=== PATIENT | male | born 1945 | race Hispanic/Latino ===

== ENCOUNTER 2018-03-17 13:50 | Inpatient (IN) | payer MEDICARE, MEDICAID ==
[~2018-03-17 13:50] MED LIST: Iopamidol 370 76% 100 ML VIAL ONE
[2018-03-17 15:07] LABS: #Basophils 0.1 thou/uL (0.0-0.2); #Eosinphils 0.1 thou/uL (0.0-0.7); #Lymphocytes 1.3 thou/uL (1.20-3.40); #Monocytes 0.5 thou/uL (0.11-0.59); #Neutrophils 5.8 thou/uL (1.40-6.50); %Basophils 0.9 % (0.0-1.0); %Eosinophils 1.4 % (0.0-10.0); %Lymphocytes 16.5 % (21.0-51.0); %Monocytes 6.6 % (0.0-10.0); %Neutrophils 74.5 % (42.0-75.0); Hemoglobin 13.5 g/dL (14.0-18.0); Mean Corpuscular HGB CONC 32.7 g/dL (32.0-36.0); Mean Corpuscular Hemoglobin 29.5 pg (27.0-31.0); Mean Corpuscular Volume 90.1 fL (78.0-98.0); Mean Platelet Volume 7.3 fL (7.4-10.4); Platelet Count 305 thou/uL (130-400); RBC Distribution Width 11.9 % (11.5-14.5); Red Blood Cell (RBC) Count 4.59 mill/uL (4.70-6.10); White Blood Cell (WBC) Count 7.8 thou/uL (4.8-10.8)
--- NOTE | 2018-03-17 15:21 | CT ---
CT HEAD NONCONTRAST: INDICATIONS: Stroke with history of left arm and left leg weakness. FINDINGS: There is multifocal subtle hypoattenuation in the cerebral hemispheres, indicating mild microvascular ischemic disease. No intracranial hemorrhage, mass effect, midline shift, or ventriculomegaly. The imaged paranasal sinuses are clear. No evidence of otomastoid effusion. IMPRESSION: 1. No intracranial hemorrhage or mass effect. 2. Findings most consistent with mild ischemic disease of the cerebral white matter. 3. Superimposed small hypodensity of the pulvinar of the left thalamus indicates lacunar infarction. Telephone call to ER physician, Gene Portillo D.O., provided at 1434 hours on 03/17/2018. CODE CR POS: [facility]
--- NOTE | 2018-03-17 15:27 | CT ---
CTA NECK WITH CONTRAST AND 3D VOLUME RENDERING CTA HEAD WITH CONTRAST AND 3D VOLUME RENDERING: Date: 03/17/18 INDICATION: New onset stroke, weakness of the left extremities. FINDINGS: Incidental note of irregular opacity of the left apex with pleural based density incompletely evaluat ed. Aortic arch is patent with mild vascular calcification present. Great vessels that emanate from the a ortic arch are patent. Each subclavian artery reveals no significant stenosis or occlusion. The bilat eral vertebral arteries are codominant and patent. Basilar artery is patent. No significant stenosis or occlusion of either STOCK BLENDER, MCA, or LUIS. Bilateral common and internal carotid arteries are patent wi th mild peripheral calcification of each terminal carotid artery. IMPRESSION: No high grade stenosis or occlusion of the major arterial system of head and neck. Telephone call to ER physician, Gene Portillo D.O., provided at 1434 hours on 03/17/2018. CODE CR POS: [facility]
[2018-03-17 15:29] LABS: ALT (SGPT) 11 U/L (8-55); AST (SGOT) 13 U/L (5-34); Albumin 3.9 g/dL (3.4-4.8); Alkaline Phosphatase 142 U/L (40-150); Anion Gap 11 mmol/L (10-20); BUN (Urea Nitrogen) 13 mg/dL (8.4-25.7); Bilirubin, Total 0.5 mg/dL (0.2-1.2); Calc. Creatinine Clearance 0 mL/min (70-130); Calcium 9.1 mg/dL (7.8-10.44); Carbon Dioxide 27 mmol/L (23-31); Chloride 103 mmol/L (98-107); Estimated GFR-MDRD 83; Globulin 2.9 g/dL (2.4-3.5); Glucose 199 mg/dL (83-110); Potassium 3.5 mmol/L (3.5-5.1); Protein, Total 6.8 g/dL (5.8-8.1); Sodium 137 mmol/L (136-145)
[2018-03-17] MEDS ORDERED: hydrALAZINE 20 MG/ML VIAL SLOW IVP PRN (16:14)
[2018-03-17] MEDS ORDERED: Dextrose 5% in Water 1,000 ML IV PRN (16:21)
[2018-03-17] MEDS ORDERED: Dextrose 50% Abboject 50 ML SYRINGE SLOW IVP PRN (16:21)
[2018-03-17] MEDS ORDERED: Aspirin 81 mg Enteric Coated Tablet PO SCH (17:00)
[2018-03-17] MEDS ORDERED: Aspirin 325 MG TAB ONE (17:31)
[2018-03-17] MEDS ORDERED: Ondansetron PF 4 MG/2 ML Vial ONE (17:46)
[2018-03-17 21:11] VITALS: BMI 22.8
[2018-03-17] MEDS ORDERED: Morphine 2 MG/ML SYRINGE SLOW IVP SCH (22:15)
[2018-03-17] MEDS: Ondansetron PF 4 MG/2 ML Vial SLOW IVP PRN (22:16)
[2018-03-17] MEDS: Atorvastatin Calcium 40 MG TAB PO SCH (22:16)
[2018-03-17] MEDS: HumaLOG 300 UNITS/3 ML VIAL SC PRN (22:27)
--- NOTE | 2018-03-17 23:08 | HP ---
CHIEF COMPLAINT: Left-sided weakness. HISTORY OF PRESENT ILLNESS: This patient is a 72-year-old male with a history of hypertension, hyperlipidemia, and diabetes, who awoke this morning feeling normally. He then developed some dizziness and then progressively some numbness over the entire left side of his body including his face, arm, and leg. He continued to maintain some movement on that side, but was not able to maintain any balance and continued to fall toward that side. He presented to the outside emergency department. However, their CT scanner was down and the patient was subsequently transferred to our facility. However, his symptoms started around 9 to 9:30 this morning and it was after 5 o'clock before he arrived and he was outside the window for consideration of tPA. In spite of that, the patient's symptoms had substantially improved by the time he arrived here. Currently, he feels like he has relatively good strength, but he is still numb on the left side. He reports his blood pressure typically runs 140/90. REVIEW OF SYSTEMS: The patient has some symptoms related to his BPH, which basically has a little bit of difficulty voiding, but other than that, all other systems were reviewed and all pertinent positives and negatives noted in the HPI. PAST MEDICAL HISTORY: Notable for hypertension, hyperlipidemia, diabetes, BPH. PAST SURGICAL HISTORY: Left shoulder, right leg, back, and a cholecystectomy. SOCIAL HISTORY: The patient is a nonsmoker, nondrinker, nontobacco user. He is . He is full code. His granddaughter or daughter would be his surrogate decision maker. FAMILY HISTORY: He has a sister, who had a CVA. They are unaware of any history with his parents. ALLERGIES: NONE. MEDICATIONS: Atorvastatin 40 mg at bedtime, captopril 12.5 mg daily, Lantus subcu at bedtime, omeprazole 20 mg daily, tamsulosin 0.4 mg daily. PHYSICAL EXAMINATION: VITAL SIGNS: BP 199/106, pulse 71, respirations 15, O2 saturation 97%. GENERAL APPEARANCE: Age-appropriate male. He is awake, alert, in no distress. He is primarily Latvian speaking. HEENT: PERRL. He has no acute lesions. NECK: Supple and symmetric with no lymphadenopathy, JVD, or carotid bruits. HEART: Regular rate and rhythm with no murmurs, gallops, or rubs. LUNGS: Clear to auscultation bilaterally with good chest wall expansion and air exchange. ABDOMEN: Soft, nontender, and nondistended. Positive bowel sounds. No masses. No organomegaly. EXTREMITIES: No cyanosis, clubbing, or edema. NEUROLOGICAL: The patient has some hypoesthesia over the entire left side of his body. He does have fairly good strength, which is pretty symmetric bilaterally, but he has decreased coordination with [id number] on the left compared to the right. Cranial nerves appear to be fully intact otherwise. LABORATORY DATA: White count 7.8, hemoglobin 13.5, platelets 305. Sodium 137, potassium 3.5, chloride 103, CO2 of 27, BUN 13, creatinine 0.9, glucose 199, calcium 9.1, AST 13, ALT 11, alkaline phosphatase 142. Troponin less than 0.01. CT of brain shows no intracranial hemorrhage or mass effect. Some mild ischemic disease of the cerebral white matter, superimposed small hypodensity of the pulvinar of the left thalamus indicating lacunar infarction. CT angiogram of the head and neck shows no high-grade stenosis or occlusion of the major arterial system of the head and neck. IMPRESSION AND PLAN: 1. Acute cerebrovascular accident, appears to be a lacunar thalamic infarction. The patient is admitted to the stroke floor. We will consult Neurology and the stroke team. He is already on aspirin and atorvastatin. We will continue those. We will allow some permissive hypertension with p.r.n. hydralazine for excessive blood pressure only. 2. Diabetes mellitus. Accu-Cheks and sliding scale insulin. 3. Baseline hypertension. We will continue only his usual home regimen. 4. Hyperlipidemia. Continue the atorvastatin. 5. Benign prostatic hypertrophy. Continue his tamsulosin. Job ID: [id number]
[2018-03-18] MEDS ORDERED: Promethazine HCl 25 MG/ML VIAL IM SCH (00:30)
[2018-03-18] MEDS ORDERED: Promethazine HCl 25 MG/ML VIAL IM/IV PRN (00:34)
[2018-03-18] MEDS ORDERED: Morphine 2 MG/ML SYRINGE SLOW IVP PRN (00:35)
[2018-03-18 00:37] LABS: Bilirubin Negative (Negative); Blood, Urine Large (Negative); Clarity CLOUDY (Clear); Glucose, Urine (Dipstick) 100 mg/dL (Negative); Leukocyte Small (Negative); Nitrite Negative (Negative); Protein, Urine (Dipstick) Negative (Neg-Trace); Specific Gravity, Urine 1.038 (1.002-1.036); Urobilinogen 0.2 mg/dL (0.2-1.0)
[2018-03-18 00:39] LABS: Bacteria/HPF Rare-Few HPF (None Seen); Hyaline Casts/LPF 0-3 HYALINE CAST LPF (0-3 Hyaline); RBC/HPF GREATER THAN 50-TNTC HPF (0-3); Squamous Epithelial 0-3 HPF (0-3)
[2018-03-18] MEDS ORDERED: Acetaminophen 1,000 MG in Premix Bag 1 BAG IVPB SCH (01:00)
[2018-03-18] MEDS: Piperacillin/Tazobactam 4.5 GM in Sodium Chloride 0.9% 100 ML IVPB SCH ×3 (01:15→17:23)
[2018-03-18 05:57] LABS: Cardiac Risk 2.8 (Less than 4.5)
[2018-03-18] MEDS ORDERED: Prevnar 13-Val Conj/PF 0.5 ML SYRINGE IM ONE (07:00)
[2018-03-18] MEDS: Tamsulosin HCl 0.4 MG CAP PO SCH (08:48)
[2018-03-18] MEDS ORDERED: Aspirin 81 mg Enteric Coated Tablet PO SCH (09:00)
--- NOTE | 2018-03-18 09:08 | CT ---
PRELIMINARY REPORT/[facility]/EMERGENCY AFTER HOURS PROCEDURE: EXAM: CT Abdomen and Pelvis With Contrast EXAM DATE/TIME: 03/18/2018 2:40 AM CLINICAL HISTORY: 72 years old, male; Pain and signs and symptoms; Abdominal tenderness and vomiting; Abdominal pain; G eneralized; Patient HX: 213, m 72, CVA PT continous vomiting. From head study yesterday in er-. M72 p resents to ed as a transfer from [place] for CVA R/O, reports that PT arrived at their facility com plaining of left arm and leg weakness, and decreased sensation to the left arm and face. Last seen no rmal 09: 15. PT transferred because CT down in [place]. Denies speech changes, vision changes. HX d iabetes. TECHNIQUE: Axial computed tomography images of the abdomen and pelvis with intravenous contrast. Coronal reformatted images were created and reviewed. COMPARISON: No relevant prior studies available. FINDINGS: Lower thorax: No acute findings. ABDOMEN: Liver: Normal. No mass. Gallbladder and bile ducts: Prior cholecystectomy. No biliary ductal dilatation. Pancreas: Normal. No ductal dilation. Spleen: Normal. No splenomegaly. Adrenals: Normal. No mass. Kidneys and ureters: Diffuse inflammation of horseshoe kidney without hydroureteronephrosis, delayed nephrogram/contrast excretion, or urolithiasis, consistent with pyelonephritis. Stomach and bowel: No bowel wall thickening or intestinal obstruction. Appendix: Appendix not confidently visualized. No evidence of appendicitis. PELVIS: Bladder: Unremarkable as visualized. Reproductive: Massive heterogeneous prostatomegaly. Small right-sided scrotal hydrocele. ABDOMEN and PELVIS: Intraperitoneal space: No pneumoperitoneum or abscess. Bones/joints: No acute fracture. No dislocation. Soft tissues: Small umbilical hernia containing fat only. Vasculature: Normal. No abdominal aortic aneurysm. Lymph nodes: Enlarged 1.4 cm short axis posterior right iliac chain lymph node, indeterminate. IMPRESSION: 1. Diffuse pyelonephritis of horseshoe kidney. 2. Massive heterogeneous prostatomegaly. 3. Enlarged 1.4 cm short axis posterior right iliac chain lymph node, indeterminate. 4. Small right-sided scrotal hydrocele. Thank you for allowing us to participate in the care of your patient. Dictated and Authenticated by: Donavon Land MD 03/18/2018 3:59 AM Central Time ([place] & [place]) FINAL REPORT EMERGENCY AFTER HOURS CT ABDOMEN AND PELVIS: Date: 03/18/18 IMPRESSION: I agree with the preliminary interpretation given by Kendrick. Perinephric fat stranding, greater involvi ng the right aspect of the horseshoe kidney, suspicious for pyelonephritis. No renal parenchymal atte nuation difference is evident. Correlate clinically. Chronic findings as in the preliminary report. POS: [facility]
--- NOTE | 2018-03-18 09:41 | PDOC.PN ---
- Subjective Encounter Start Date: 03/18/18 Encounter Start Time: 09:38 Symptoms may be slightly worse regarding his left sided coordination. Still has some numbness. Had some urinary obstruction last night. Had cath and some modest blood noted. 650 cc of urine obtained. Patient also had a temp of 103. CT abdomen and pelvis ordered. Started on Zosyn. - Objective Resuscitation Status - Order Detail: 03/17/18 16:15 Resuscitation Status Routine Resuscitation Status: FULL: Full Resuscitation Vital Signs & Weight: Vital Signs (12 hours) Temp Pulse Resp BP Pulse Ox 03/18/18 07:55 98.4 F 88 16 108/81 94 L 03/18/18 05:05 100.0 F H 99 14 94/60 91 L 03/18/18 00:20 103.1 F H 127 H 16 119/65 97 Weight Weight 155 lb 3.2 oz I&O: 03/17/18 03/18/18 03/19/18 06:59 06:59 06:59 Intake Total 500 Output Total 625 Balance -125 Result Diagrams: 03/17/18 14:56 03/17/18 14:56 Additional Labs: Accuchecks 03/18/18 03/17/18 03/17/18 08:03 22:25 14:04 POC Glucose 158 H 255 H 197 H Phys Exam - Physical Examination Constitutional: NAD Respiratory: no wheezing, no rales, no rhonchi, clear to auscultation bilateral Cardiovascular: RRR, no significant murmur, no rub Gastrointestinal: soft, non-tender, no distention, positive bowel sounds Musculoskeletal: no edema Mild left facial droop. 4+/5 strength on left. Hypo-esthesia left. Psychiatric: normal affect, A&O x 3 Skin: normal turgor Dx/Plan (1) 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 Code(s): I63.9 - CEREBRAL INFARCTION, UNSPECIFIED; G81.94 - HEMIPLEGIA, UNSPECIFIED AFFECTING LEFT NONDOMINANT SIDE Status: Acute (2) Pyelonephritis Code(s): N12 - TUBULO-INTERSTITIAL NEPHRITIS, NOT SPCF ACUTE OR CHRONIC Status: Acute (3) Horseshoe kidney Code(s): Q63.1 - LOBULATED, FUSED AND HORSESHOE KIDNEY Status: Acute (4) BPH with obstruction/lower urinary tract symptoms Code(s): N40.1 - BENIGN PROSTATIC HYPERPLASIA WITH LOWER URINARY TRACT SYMP; N13.8 - OTHER OBSTRUCTIVE AND REFLUX UROPATHY Status: Acute (5) Urinary retention Code(s): R33.9 - RETENTION OF URINE, UNSPECIFIED Status: Acute (6) Hypertension Code(s): I10 - ESSENTIAL (PRIMARY) HYPERTENSION Status: Acute (7) Hyperlipidemia Code(s): E78.5 - HYPERLIPIDEMIA, UNSPECIFIED Status: Acute (8) Diabetes mellitus Code(s): E11.9 - TYPE 2 DIABETES MELLITUS WITHOUT COMPLICATIONS Status: Acute - Plan * MRI brain * neuro consult * PT/OT/ELECTRIC MOTOR REPAIRING SUPERVISOR consult. * Aspirin held until ok'd by Urology * Urology consult. * Zosyn for pyelonephritis. * Urine culture pending. * Blood culture pending. * Permissive BP management. * Usual meds for DM and SSI.
[2018-03-18] MEDS ORDERED: ISOVUE-370 76%-LOCM 1 ML ONE (10:13)
--- NOTE | 2018-03-18 12:02 | MRI ---
MRI BRAIN: Date: 03/18/18 PROVIDED CLINICAL HISTORY: CVA. FINDINGS: The ventricular system appears normal in size and morphology. There is no evidence for intracranial h emorrhage. Restricted diffusion is seen within the right thalamus, compatible with recent infarction. No additional restricted diffusion is evident. Chronic microvascular ischemic changes are seen invol ving the cerebral white matter. Appropriate flow-voids are seen within the major intracranial vessels . The extracranial soft tissues and calvarial marrow signal demonstrate no acute abnormality. IMPRESSION: Recent infarction involving the right thalamus. POS: [facility]
[2018-03-18] MEDS: HumaLOG 300 UNITS/3 ML VIAL SC PRN ×2 (13:07→17:24)
--- NOTE | 2018-03-18 13:40 | RAD ---
CHEST 2 VIEWS: Date: 03/18/18 HISTORY: Fever. FINDINGS: Heart size and mediastinum are within normal limits. Lungs are clear of infiltrates. Slight elevation of right hemidiaphragm. There are arthritic changes of the spine. IMPRESSION: No active intrathoracic disease. POS: [facility]
--- NOTE | 2018-03-18 16:39 | CON ---
DATE OF CONSULTATION: 03/18/2018 REASON FOR CONSULTATION: Urinary retention. HISTORY OF PRESENT ILLNESS: Mr. Temple is a 72-year-old gentleman, who presented to the hospital with acute onset of left-sided weakness and numbness. He had found it difficult to walk as a result of these symptoms. The symptoms involves the entire left side of his body. He has since been undergoing workup for CVA. The strength on the left side has returned, although he continues to have numbness. Last night, he developed urinary retention and a Becker catheter was placed. There was some hematuria that was noted after catheter placement. This has cleared. The patient does have a history of BPH and has been taking Flomax. Typically, he denies any problems voiding during the daytime. He does have nocturia that will vary from several times an hour to only 1 or 2 times per night. He has been on tamsulosin 1 p.o. at bedtime. He has not seen Urology in the past. CT scan was obtained of the abdomen and pelvis and demonstrates horseshoe kidney and marked BPH with a large median lobe. There is no evidence of renal obstruction. PAST MEDICAL HISTORY: Hypertension, hypercholesterolemia, diabetes, and BPH. PAST SURGICAL HISTORY: Cholecystectomy, left shoulder surgery, back surgery, and repair of traumatic finger injuries x2. SOCIAL HISTORY: Nonsmoker. Denies use of alcohol use. , has a supportive family. FAMILY HISTORY: History of stroke in a sister. ALLERGIES: NO KNOWN DRUG ALLERGIES. CHRONIC MEDICATIONS: 1. Lipitor 40 mg at bedtime. 2. Captopril 12.5 mg daily. 3. Lantus insulin subcu at night. 4. Omeprazole 20 mg daily. 5. Tamsulosin 0.4 mg daily. REVIEW OF SYSTEMS: RESPIRATORY: Denies any shortness of breath. CARDIOVASCULAR: Denies chest pain or palpitations. GASTROINTESTINAL: Denies chronic constipation or diarrhea. GENITOURINARY: Please see history of present illness. MUSCULOSKELETAL: Please see history of present illness. PHYSICAL EXAMINATION: GENERAL: He is awake and alert. He is in no distress at this time. He speaks Finnish only. VITAL SIGNS: Blood pressure 138/82, pulse 72, and respiratory rate 16. HEENT: Normocephalic and atraumatic. NECK: Supple without masses. CHEST: Clear to auscultation. CARDIOVASCULAR: No murmurs auscultated. ABDOMEN: Soft and nontender. No palpable masses. Liver and spleen not palpable. No abdominal tenderness noted. EXTREMITIES: Without edema. He is missing distal aspect of 1 of the digit on the right hand and 1 digit on the left hand. LABORATORY DATA: Creatinine 0.9. Hemoglobin 13.5 and platelets 305. IMPRESSION: Becker catheter is in place and is now draining clear urine. He has a horseshoe kidney without any notable stones or signs of obstruction. He has a very large prostate with a very large median lobe with intravesical extension. Interestingly, his urinary symptoms have been quite tolerable with Flomax. RECOMMENDATIONS: Double Flomax to 0.4 mg 2 p.o. at bedtime. Becker catheter in place until prior to discharge that can be removed per voiding trial. Surgical intervention if he remains in retention despite maximal medical therapy. Job ID: [id number] [facility]
[2018-03-18] MEDS: Ondansetron PF 4 MG/2 ML Vial SLOW IVP PRN (17:50)
[2018-03-18] MEDS: Cyclobenzaprine 10 MG TAB PO PRN (19:02)
[2018-03-18] MEDS ORDERED: Tamsulosin HCl 0.4 MG CAP PO SCH (21:00)
[2018-03-18] MEDS: Atorvastatin Calcium 40 MG TAB PO SCH (22:19)
[2018-03-19] MEDS: Piperacillin/Tazobactam 4.5 GM in Sodium Chloride 0.9% 100 ML IVPB SCH ×3 (01:14→18:32)
--- NOTE | 2018-03-19 01:26 | CON ---
DATE OF CONSULTATION: CHIEF COMPLAINT: Numbness. HISTORY OF PRESENT ILLNESS: The patient is a very pleasant gentleman. His granddaughter translated his medical history for me. The patient is a 72-year- old man with history of hypertension, diabetes, and hyperlipidemia. He has had dizziness and numbness on the left side along with slurred speech and difficulty getting up yesterday when he tried to get up from his bed. He continued to have some numbness and even now has continuous symptoms. He does not report weakness as such, but he came to the ER because he was having balance problems and started to fall to the left side, and his symptoms started around 9 or 930 yesterday morning, and he came to the ER after 5 p.m., and he was outside the window for IV tPA. His symptoms have definitely improved, but he continued to have some numbness yesterday in the ER. PREVIOUS MEDICAL HISTORY: As noted, diabetes, hypertension, hyperlipidemia, benign prostatic hypertrophy. PAST SURGICAL HISTORY: Left shoulder surgery in 1985, right leg surgery in 1995 , back surgery in 1985, right index finger amputation, and gallbladder surgery he is not sure when he had that surgery. SOCIAL HISTORY: Nonsmoker. No alcohol. He is and lives with his , but is also sick. The daughter and granddaughter help him. 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 FAMILY HISTORY: Both parents have . Father in his 60s. Mother in her 60s. He is not sure what happened to their health. His 2 sisters had stroke. His daughter has hypertension. He has 4 children, 2 sons and 2 daughters. REVIEW OF SYSTEMS: PULMONARY: Negative for any shortness of breath. CARDIAC: Negative for chest pain or palpitations. GI: Negative for nausea, vomiting, or diarrhea. DERMATOLOGIC: Negative for any skin rash. HEMATOLOGIC: Negative for any bleeding diathesis. ALLERGIES: NO KNOWN DRUG ALLERGIES. MEDICATIONS: 1. Atorvastatin. 2. Captopril. 3. Lantus insulin. 4. Omeprazole. 5. Tamsulosin. LABORATORY WORKUP: I reviewed his lab reports. White count 7.8, hemoglobin 13.5, hematocrit 41.4, platelets 305. Chemistry; sodium 137, potassium 3.5, chloride 103, bicarb 27, BUN 13, creatinine 0.9, glucose 199, triglycerides 50, cholesterol 116, LDL 64, HDL 42. Heart disease risk ratio of 2.8. A CT angiography was performed and his CTA did not show any stenosis or occlusion of the arterial system of the head and neck area and his MRI was performed today. An MRI showed recent infarction involving the right thalamus. PHYSICAL EXAMINATION: VITAL SIGNS: The patient's blood pressure 120/64, temperature 98.6, pulse is 90 , respiratory rate 18. GENERAL APPEARANCE: Well-built and well-nourished, very pleasant man. CHEST: Clear vesicular breathing. CARDIOVASCULAR: S1 and S2 heard. No murmurs. ABDOMEN: Soft and nontender. No organomegaly noted. NEUROLOGIC: Higher intellectual functions: Normal orientation to time place person and appropriate conversation. Cranial nerves II through XII, pupils 2 mm, equally reactive. No facial asymmetry. He has numbness of the left side of the face. Normal hearing to finger rub bilaterally. Tongue midline. No atrophy noted and normal elevation of palate. Normal extraocular movements. Motor exam; bulk normal, tone normal, strength 5/5 in both upper and lower extremities in iliopsoas, hamstrings, quadriceps, ankle dorsiflexion, plantar flexion, deltoid, biceps, wrist extension and flexion, and finger extension and flexion. Deep tendon reflexes were 2+ throughout. Cerebellar; he had left cerebellar dysfunction with mild incoordination in the left upper and lower extremities. Sensory exam; he had numbness in the left face, arm, and leg distribution along with proprioceptive sensory loss. IMPRESSION: The patient with thalamic infarct on the right side with sudden onset symptoms of slurred speech, dizziness, numbness, and falling to the left side. He has had no prior stroke, but has a family history of stroke, and he has a strong risk factors as well including high diabetes, hypertension, and hyperlipidemia. He is not on aspirin at home. His examination showed left face, arm, and leg numbness with left cerebellar symptoms along with loss of proprioception. Clinical findings and history are most consistent with acute cerebrovascular accident and has evidence on the MRI, he has a thalamic infarct. TREATMENT RECOMMENDATIONS: I suggest that he start on aspirin for stroke prophylaxis. Please complete his workup including his echocardiogram. He will need further physical therapy. Consider rehab placement and education about risk factors for stroke, and we will follow up as needed. Job ID: [id number] [facility]
[2018-03-19] MEDS: HumaLOG 300 UNITS/3 ML VIAL SC PRN ×4 (06:17→21:04)
[2018-03-19] MEDS: Tamsulosin HCl 0.4 MG CAP PO SCH ×2 (09:00→21:04)
[2018-03-19] MEDS ORDERED: Aspirin 81 mg Enteric Coated Tablet PO SCH (11:45)
--- NOTE | 2018-03-19 14:11 | PDOC.PN ---
- Subjective Encounter Start Date: 03/19/18 Encounter Start Time: 10:15 Doing well. Sleepy today. No new complaints. - Objective Resuscitation Status - Order Detail: 03/17/18 16:15 Resuscitation Status Routine Resuscitation Status: FULL: Full Resuscitation Vital Signs & Weight: Vital Signs (12 hours) Temp Pulse Pulse Pulse Resp BP BP 03/19/18 12:00 98.6 F 87 16 03/19/18 09:08 92 71 166/81 H 133/71 03/19/18 08:00 99.4 F 75 14 03/19/18 03:15 98.4 F 80 16 BP Pulse Ox 03/19/18 12:00 102/58 L 92 L 03/19/18 09:08 03/19/18 08:00 107/55 L 92 L 03/19/18 03:15 105/58 L 93 L Weight Weight 155 lb 3.2 oz I&O: 03/18/18 03/19/18 03/20/18 06:59 06:59 06:59 Intake Total 500 1723 180 Output Total 625 1100 Balance -125 623 180 Result Diagrams: 03/17/18 14:56 03/17/18 14:56 Additional Labs: Accuchecks 03/19/18 03/19/18 03/18/18 11:14 05:49 20:27 POC Glucose 227 H 193 H 199 H 03/18/18 16:40 POC Glucose 196 H Phys Exam - Physical Examination Constitutional: NAD Respiratory: no wheezing, no rales, no rhonchi, clear to auscultation bilateral Cardiovascular: RRR, no significant murmur, no rub Gastrointestinal: soft, non-tender, no distention, positive bowel sounds Musculoskeletal: no edema Left sided weakness stable. 4+/5 Psychiatric: normal affect, A&O x 3 Skin: no rash, normal turgor Dx/Plan (1) 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 Code(s): I63.9 - CEREBRAL INFARCTION, UNSPECIFIED; G81.94 - HEMIPLEGIA, UNSPECIFIED AFFECTING LEFT NONDOMINANT SIDE Status: Acute (2) Pyelonephritis Code(s): N12 - TUBULO-INTERSTITIAL NEPHRITIS, NOT SPCF ACUTE OR CHRONIC Status: Acute Comment: Urine cx growing presumptive E. coli (3) Horseshoe kidney Code(s): Q63.1 - LOBULATED, FUSED AND HORSESHOE KIDNEY Status: Acute (4) BPH with obstruction/lower urinary tract symptoms Code(s): N40.1 - BENIGN PROSTATIC HYPERPLASIA WITH LOWER URINARY TRACT SYMP; N13.8 - OTHER OBSTRUCTIVE AND REFLUX UROPATHY Status: Acute (5) Urinary retention Code(s): R33.9 - RETENTION OF URINE, UNSPECIFIED Status: Acute (6) Hypertension Code(s): I10 - ESSENTIAL (PRIMARY) HYPERTENSION Status: Acute (7) Hyperlipidemia Code(s): E78.5 - HYPERLIPIDEMIA, UNSPECIFIED Status: Acute (8) Diabetes mellitus Code(s): E11.9 - TYPE 2 DIABETES MELLITUS WITHOUT COMPLICATIONS Status: Acute - Plan * Continue PT. Considering rehab closer to home ([facility]) * Resume daily aspirin (never actually missed any doses). * Continue IV abx until the urine C and S is complete and oral options identified. * Continue Becker until ready for DC, then remove for a voiding trial. If voids and does not retain, will leave it out. If he retains, leave it in and let him follow up with Urology. * Resume his Lantus now that it is clear that he does not have any dysphagia.
[2018-03-19] MEDS ORDERED: Prevnar 13-Val Conj/PF 0.5 ML SYRINGE IM ONE (15:00)
[2018-03-19] MEDS: Acetaminophen 325 MG TAB PO PRN (17:04)
--- NOTE | 2018-03-19 18:54 | RAD ---
RIGHT KNEE RADIOGRAPHS FOUR VIEWS: 03/19/2018 PROVIDED CLINICAL HISTORY: Right knee pain status post injury. FINDINGS: Degenerative changes are seen. Vascular calcifications are seen. No evidence for fracture or other acute osseous abnormality. If there is persistent clinical concern, conservative management and follow-up imaging are advised. IMPRESSION: As above. POS: [facility]
--- NOTE | 2018-03-19 18:55 | RAD ---
LEFT KNEE RADIOGRAPHS FOUR VIEWS: 03/19/2018 PROVIDED CLINICAL HISTORY: Left knee pain. FINDINGS: Chondrocalcinosis is seen. Degenerative changes are seen. There is no evidence for fracture or othe r acute osseous abnormality. If there is persistent clinical concern, conservative management and fo llow-up imaging are advised. IMPRESSION: As above. POS: [facility]
[2018-03-19] MEDS: Atorvastatin Calcium 40 MG TAB PO SCH (21:04)
[2018-03-20] MEDS: Piperacillin/Tazobactam 4.5 GM in Sodium Chloride 0.9% 100 ML IVPB SCH ×2 (00:49→10:41)
[2018-03-20] MEDS: Insulin Glargine 25 UNITS in Pre-Filled Syringe SC SCH (08:57)
[2018-03-20] MEDS: Tamsulosin HCl 0.4 MG CAP PO SCH ×2 (08:58→21:53)
[2018-03-20] MEDS: Aspirin 81 mg Enteric Coated Tablet PO SCH (08:58)
[2018-03-20] MEDS: Cyclobenzaprine 10 MG TAB PO PRN (11:37)
[2018-03-20] MEDS: HumaLOG 300 UNITS/3 ML VIAL SC PRN ×2 (11:55→16:39)
--- NOTE | 2018-03-20 16:51 | PDOC.PN ---
- Subjective Encounter Start Date: 03/20/18 Encounter Start Time: 12:30 Doing well. No complaints. Still having some spasms in the left LE. - Objective Resuscitation Status - Order Detail: 03/17/18 16:15 Resuscitation Status Routine Resuscitation Status: FULL: Full Resuscitation Vital Signs & Weight: Vital Signs (12 hours) Temp Pulse Pulse Resp BP BP Pulse Ox 03/20/18 15:50 99.3 F 57 L 17 148/82 H 99 03/20/18 14:09 70 173/88 H 03/20/18 11:52 98.7 F 84 16 153/77 H 98 03/20/18 08:58 96 03/20/18 07:32 97.7 F 79 16 155/85 H 96 Weight Weight 155 lb 3.2 oz I&O: 03/19/18 03/20/18 03/21/18 06:59 06:59 06:59 Intake Total 1723 721 Output Total 1100 615 365 Balance 623 106 -365 Result Diagrams: 03/17/18 14:56 03/17/18 14:56 Additional Labs: Accuchecks 03/20/18 03/20/18 03/19/18 11:02 05:26 21:02 POC Glucose 265 H 143 H 207 H 03/19/18 16:50 POC Glucose 262 H Phys Exam - Physical Examination Constitutional: NAD Respiratory: no wheezing, no rales, no rhonchi, clear to auscultation bilateral Cardiovascular: RRR, no significant murmur, no rub Gastrointestinal: soft, non-tender, no distention, positive bowel sounds Musculoskeletal: no edema Good strength bilaterally. Modest weakness on left. 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 coli (3) Horseshoe kidney Code(s): Q63.1 - LOBULATED, FUSED AND HORSESHOE KIDNEY Status: Acute (4) BPH with obstruction/lower urinary tract symptoms Code(s): N40.1 - BENIGN PROSTATIC HYPERPLASIA WITH LOWER URINARY TRACT SYMP; N13.8 - OTHER OBSTRUCTIVE AND REFLUX UROPATHY Status: Acute (5) Urinary retention Code(s): R33.9 - RETENTION OF URINE, UNSPECIFIED Status: Acute (6) Hypertension Code(s): I10 - ESSENTIAL (PRIMARY) HYPERTENSION Status: Acute (7) Hyperlipidemia Code(s): E78.5 - HYPERLIPIDEMIA, UNSPECIFIED Status: Acute (8) Diabetes mellitus Code(s): E11.9 - TYPE 2 DIABETES MELLITUS WITHOUT COMPLICATIONS Status: Acute - Plan * Doing well. * Will attempt to dc manriquez and see if he can void adequately. * Discussed with patient, his family and the CM. He is ready for discharge. Working on rehab placement. * Continue po abx. * Continue therapy. * ASA, statin. * Echo ok.
[2018-03-20] MEDS: Atorvastatin Calcium 40 MG TAB PO SCH (21:53)
[2018-03-21 03:29] LABS: #Eosinphils 0.5 thou/uL (0.0-0.7); #Lymphocytes 1.5 thou/uL (1.20-3.40); #Monocytes 0.7 thou/uL (0.11-0.59); %Basophils 0.3 % (0.0-1.0); %Eosinophils 5.2 % (0.0-10.0); %Lymphocytes 15.7 % (21.0-51.0); %Neutrophils 71.9 % (42.0-75.0); Hemoglobin 12.2 g/dL (14.0-18.0); Mean Corpuscular HGB CONC 31.9 g/dL (32.0-36.0); Mean Corpuscular Hemoglobin 28.6 pg (27.0-31.0); Mean Corpuscular Volume 89.7 fL (78.0-98.0); Mean Platelet Volume 6.9 fL (7.4-10.4); Platelet Count 297 thou/uL (130-400); RBC Distribution Width 11.9 % (11.5-14.5); Red Blood Cell (RBC) Count 4.28 mill/uL (4.70-6.10); White Blood Cell (WBC) Count 9.7 thou/uL (4.8-10.8)
[2018-03-21 03:51] LABS: ALT (SGPT) 18 U/L (8-55); AST (SGOT) 29 U/L (5-34); Albumin 3.3 g/dL (3.4-4.8); Alkaline Phosphatase 65 U/L (40-150); Anion Gap 12 mmol/L (10-20); BUN (Urea Nitrogen) 17 mg/dL (8.4-25.7); Bilirubin, Total 0.7 mg/dL (0.2-1.2); Calc. Creatinine Clearance 86 mL/min (70-130); Calcium 8.6 mg/dL (7.8-10.44); Carbon Dioxide 27 mmol/L (23-31); Chloride 105 mmol/L (98-107); Estimated GFR-MDRD Greater than 90; Globulin 2.4 g/dL (2.4-3.5); Glucose 90 mg/dL (83-110); Potassium 3.3 mmol/L (3.5-5.1); Protein, Total 5.7 g/dL (5.8-8.1); Sodium 141 mmol/L (136-145)
[2018-03-21 03:53] LABS: Troponin I 0.025 ng/mL (< 0.028)
[2018-03-21 07:40] LABS: Troponin I 0.013 ng/mL (< 0.028)
[2018-03-21] MEDS: Aspirin 81 mg Enteric Coated Tablet PO SCH (09:00)
[2018-03-21] MEDS: Insulin Glargine 25 UNITS in Pre-Filled Syringe SC SCH (09:00)
[2018-03-21] MEDS ORDERED: ISOVUE-370 76%-LOCM 1 ML ONE (09:51)
[2018-03-21] MEDS: Acetaminophen 325 MG TAB PO PRN (10:47)
[2018-03-21] MEDS: HumaLOG 300 UNITS/3 ML VIAL SC PRN ×2 (10:47→17:56)
--- NOTE | 2018-03-21 11:19 | PDOC.PN ---
- Subjective Encounter Start Date: 03/21/18 Encounter Start Time: 11:17 Patient reported chest pain and shortness of breath over night. He told his grandson that he felt like he couldn't get a good breath. Had an EKG that did not show any ischemia. Apparently had some PVC's. Had a headache this morning , but that has resolved. - Objective Resuscitation Status - Order Detail: 03/17/18 16:15 Resuscitation Status Routine Resuscitation Status: FULL: Full Resuscitation Vital Signs & Weight: Vital Signs (12 hours) Temp Pulse Resp BP Pulse Ox 03/21/18 07:48 98 F 71 20 148/79 H 98 03/21/18 04:00 98.2 F 69 18 153/78 H 96 03/21/18 00:00 19 176/85 H 96 Weight Weight 162 lb 1.6 oz I&O: 03/20/18 03/21/18 03/22/18 06:59 06:59 06:59 Intake Total 721 1340 Output Total 615 1515 Balance 106 -175 Result Diagrams: 03/21/18 03:21 03/21/18 03:21 Additional Labs: Accuchecks 03/21/18 03/21/18 03/20/18 10:34 05:46 20:17 POC Glucose 195 H 77 103 03/20/18 03/20/18 16:36 11:02 POC Glucose 163 H 265 H Phys Exam - Physical Examination Constitutional: NAD Respiratory: no wheezing, no rales, no rhonchi, clear to auscultation bilateral Cardiovascular: RRR, no significant murmur, no rub Gastrointestinal: soft, non-tender, no distention, positive bowel sounds Musculoskeletal: no edema No erythema, no TTP, no cords. Persistent Left sided weakness. Psychiatric: normal affect, A&O x 3 Deviation from normal: Erythema of the medial thighs bilaterally. 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 coli (3) Horseshoe kidney Code(s): Q63.1 - LOBULATED, FUSED AND HORSESHOE KIDNEY Status: Acute (4) BPH with obstruction/lower urinary tract symptoms Code(s): N40.1 - BENIGN PROSTATIC HYPERPLASIA WITH LOWER URINARY TRACT SYMP; N13.8 - OTHER OBSTRUCTIVE AND REFLUX UROPATHY Status: Acute (5) Urinary retention Code(s): R33.9 - RETENTION OF URINE, UNSPECIFIED Status: Acute (6) Hypertension Code(s): I10 - ESSENTIAL (PRIMARY) HYPERTENSION Status: Acute (7) Hyperlipidemia Code(s): E78.5 - HYPERLIPIDEMIA, UNSPECIFIED Status: Acute (8) Diabetes mellitus Code(s): E11.9 - TYPE 2 DIABETES MELLITUS WITHOUT COMPLICATIONS Status: Acute (9) Chest pain Code(s): R07.9 - CHEST PAIN, UNSPECIFIED Status: Acute - Plan * Had CP overnight. Trops negative. EKG showed no ischemia. * D-dimer. If not negative, CT angio chest. Lovenox was held when he developed hematuria. Becker back in and not hematuria now. Will resume the Lovenox. * Stress tomorrow if PE workup negative. Had coffee this morning. * Could not adequately void yesterday. Becker replaced. Will need to stay with the Becker until he has outpatient follow up with Urology. * Dermatitis is new, but he says it was present yesterday. It is a little pruritic and looks like med reaction. Would not suspect the Levaquin as it sounds like it started before the Levaquin. Continue to watch. * Accepted to rehab today, but need to work up the CP prior to discharge. * Continue levaquin for Pyelo. * If no PE and stress test negative, can discharge to rehab tomorrow.
[2018-03-21] MEDS ORDERED: Enoxaparin Sodium 40 MG/0.4 ML SYRINGE SC SCH (11:30)
--- NOTE | 2018-03-21 14:52 | CT ---
CONTRAST ENHANCED CTA CHEST: HISTORY: Shortness of breath, chest pain. FINDINGS: Contrast-enhanced CTA of the chest is performed. Two-D and 3D reconstruction images performed on an independent 3D work station. Images demonstrate areas of lung parenchymal scarring in the left upper lobe. No evidence of mediastinal, axillary, or hilar lymphadenopathy is seen. No evidence of filling defect is seen in the pulmonary arteries to suggest pulmonary emboli. Inciden tally noted distal esophageal thickening and possible sliding hiatal hernia is also present. IMPRESSION: Left upper lobe lung parenchymal scarring. Incidentally noted coronary artery calcifications are pre sent. POS: [facility]
[2018-03-21] MEDS: Atorvastatin Calcium 40 MG TAB PO SCH (22:13)
[2018-03-21] MEDS: Tamsulosin HCl 0.4 MG CAP PO SCH (22:13)
[2018-03-22] MEDS ORDERED: Sodium Chloride 0.9% 1,000 ML IV SCH (03:30)
[2018-03-22] MEDS: diphenhydrAMINE 25 MG CAP PO PRN ×2 (03:39→14:35)
[2018-03-22] MEDS ORDERED: Enoxaparin Sodium 40 MG/0.4 ML SYRINGE SC SCH (09:00)
[2018-03-22] MEDS: Insulin Glargine 25 UNITS in Pre-Filled Syringe SC SCH (10:23)
[2018-03-22] MEDS: Aspirin 81 mg Enteric Coated Tablet PO SCH (10:23)
[2018-03-22] MEDS: HumaLOG 300 UNITS/3 ML VIAL SC PRN (11:22)
--- NOTE | 2018-03-22 13:04 | NM ---
CARDIAC SPECT: CLINICAL HISTORY: 72-year-old male with chest pain, hypertension, diabetes, and dyslipidemia. TECHNIQUE: A myocardial perfusion scan was performed using the single isotope one day protocol with technetium-9 9m sestamibi. 11 mCi were injected intravenously for the rest exam followed by 31 mCi for the stress exam. Pharmacologic stress with Adenosine was monitored and interpreted by Anand Julian. [employer]. FINDINGS: There is a small fixed defect in the mid lateral wall. No reversible defects are seen. GATED SPECT LVEF: 54%. WALL MOTION EXAM: Normal. IMPRESSION: No evidence of reversible ischemia. POS: [facility]
--- NOTE | 2018-03-22 14:39 | DIS ---
DATE OF ADMISSION: 03/17/2018 DATE OF DISCHARGE: 03/22/2018 DISCHARGE DISPOSITION: Inpatient Rehab in [place]. PRIMARY DISCHARGE DIAGNOSES: Acute cerebrovascular accident with left hemiparesis due to right thalamic infarct, resolving; pyelonephritis; benign prostatic hypertrophy; chest pain with no reversible ischemia on stress test. SECONDARY DISCHARGE DIAGNOSES: Horseshoe kidney, diabetes mellitus type 2, hypertension, dyslipidemia, urinary retention due to benign prostatic hypertrophy. PROCEDURES DONE DURING HOSPITALIZATION: The patient has had MRI brain which showed right thalamic infarct. Echo with 2D Doppler showed an EF of 55% to 60%. No thrombus was seen in the cardiac chambers. CT angio of chest done showed no evidence of PE. There was left upper lobe parenchymal scarring seen. Nuclear stress test done showed an EF of 54% with normal wall motion. No reversible ischemia was seen. There was a small fixed defect in the mid lateral wall. CT angio of the brain showed no high-grade stenosis or occlusion of the major arterial system of the head and neck. The urine culture grew E coli resistant to quinolones and cefoxitin, but sensitive to all other antibiotics. Hemoglobin and hematocrit 12 and 38, platelet count 297. Troponin x2 negative. BUN 12, creatinine 0.7. Albumin is 3.3. Total cholesterol 116, triglycerides 50, LDL 64, HDL 42. DISCHARGE MEDICATIONS: 1. Atorvastatin 40 mg p.o. at bedtime. 2. Lantus 25 units subcu daily. 3. Omeprazole 40 mg p.o. daily. 4. Aspirin 81 mg p.o. daily. 5. Captopril 50 mg twice daily. 6. Flomax 0.8 mg p.o. at bedtime. 7. Macrobid 100 mg twice daily for 5 days. INPATIENT CONSULTS: Dr. Patito Tejeda for Neurology and Dr. Batres for Urology. ALLERGIES: NO KNOWN DRUG ALLERGIES. BRIEF COURSE DURING HOSPITALIZATION: The patient initially got admitted on the with left-sided weakness and stroke alert. Initial CT angio of brain and CT without contrast done showed no acute changes. MRI subsequently done revealed right thalamic infarct with left hemiparesis. His left hemiparesis is slowly resolving. At the time of discharge, the patient is ambulating with a rolling walker. The patient developed chest pain and had cardiac workup including two sets of troponin and a nuclear stress test done, which showed no reversible ischemia. He has a fixed defect in the lateral wall. Wall motion was normal on the stress test. The patient also had urinary retention with a very large prostate. He has had a Becker catheter placed and has had consultation with Dr. Batres for Urology. He is being accepted to [facility] and will be shortly discharged. Please see a [id number] documentation for the day of discharge on De[facility]. A total of 35 minutes was spent on discharge plan. Job ID: [id number]
--- NOTE | 2018-03-22 14:46 | PDOC.PN ---
- Subjective Encounter Start Date: 03/22/18 Encounter Start Time: 12:00 Subjective: no chest pain or palp -: is amb with PT and rolling walker - Objective Resuscitation Status - Order Detail: 03/17/18 16:15 Resuscitation Status Routine Resuscitation Status: FULL: Full Resuscitation MAR Reviewed: Yes Vital Signs & Weight: Vital Signs (12 hours) Temp Pulse Resp BP Pulse Ox 03/22/18 11:40 98.7 F 81 18 154/87 H 98 03/22/18 10:15 98.1 F 85 18 165/79 H 99 03/22/18 04:00 98.8 F 78 19 163/85 H 95 Weight Weight 163 lb 3 oz I&O: 03/21/18 03/22/18 03/23/18 06:59 06:59 06:59 Intake Total 1340 990 Output Total 1515 950 Balance -175 40 Result Diagrams: 03/21/18 03:21 03/21/18 03:21 Additional Labs: Accuchecks 03/22/18 03/22/18 03/21/18 10:51 06:11 19:54 POC Glucose 245 H 104 214 H 03/21/18 16:56 POC Glucose 156 H Phys Exam - Physical Examination HEENT: PERRLA, moist MMs Neck: no JVD, supple Respiratory: no wheezing, no rales Cardiovascular: RRR, no significant murmur Gastrointestinal: soft, no distention, positive bowel sounds Musculoskeletal: no edema, pulses present Neurological: non-focal, moves all 4 limbs Psychiatric: normal affect, A&O x 3 Dx/Plan (1) 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 Code(s): I63.9 - CEREBRAL INFARCTION, UNSPECIFIED; G81.94 - HEMIPLEGIA, UNSPECIFIED AFFECTING LEFT NONDOMINANT SIDE Status: Acute Comment: ac right thalamic cva (2) BPH with obstruction/lower urinary tract symptoms Code(s): N40.1 - BENIGN PROSTATIC HYPERPLASIA WITH LOWER URINARY TRACT SYMP; N13.8 - OTHER OBSTRUCTIVE AND REFLUX UROPATHY Status: Acute Comment: has mitra (3) Diabetes mellitus Code(s): E11.9 - TYPE 2 DIABETES MELLITUS WITHOUT COMPLICATIONS Status: Chronic Qualifiers: Diabetes mellitus type: type 2 Diabetes mellitus [facility] insulin use: with [facility] use Diabetes mellitus complication status: with unspecified complications Qualified Code(s): E11.8 - Type 2 diabetes mellitus with unspecified complications; Z79.4 - remote computer terminal operator (current) use of insulin (4) Horseshoe kidney Code(s): Q63.1 - LOBULATED, FUSED AND HORSESHOE KIDNEY Status: Chronic (5) Hyperlipidemia Code(s): E78.5 - HYPERLIPIDEMIA, UNSPECIFIED Status: Chronic Qualifiers: Hyperlipidemia type: unspecified Qualified Code(s): E78.5 - Hyperlipidemia , unspecified (6) Hypertension Code(s): I10 - ESSENTIAL (PRIMARY) HYPERTENSION Status: Chronic Qualifiers: Hypertension type: essential hypertension Qualified Code(s): I10 - Essential (primary) hypertension (7) Pyelonephritis Code(s): N12 - TUBULO-INTERSTITIAL NEPHRITIS, NOT SPCF ACUTE OR CHRONIC Status: Acute Comment: Urine cx growing presumptive E. coli (8) Urinary retention Code(s): R33.9 - RETENTION OF URINE, UNSPECIFIED Status: Acute - Plan macrobid for uti -: hemo/neurostable -: stress test is -ve -: may dc to in rehab at [place] if accepted anytime * . Review of Systems - Medications/Allergies Allergies/Adverse Reactions: Allergies Allergy/AdvReac Type Severity Reaction Status Date / Time No Known Drug Allergies Allergy Verified 03/17/18 16:45 Medications: Current Medications Acetaminophen (Tylenol) 650 mg PO Q6H PRN PRN Reason: Headache/Fever or Pain Last Admin: 03/21/18 10:47 Dose: 650 mg Aspirin (Ecotrin) 81 mg PO DAILY [facility] Last Admin: 03/22/18 10:23 Dose: 81 mg Atorvastatin Calcium (Lipitor) 40 mg PO HS [facility] Last Admin: 03/21/18 22:13 Dose: 40 mg Cyclobenzaprine HCl (Flexeril) 10 mg PO Q8H PRN PRN Reason: Muscle Spasms Last Admin: 03/20/18 11:37 Dose: 10 mg Dextrose/Water (Dextrose 50%) 25 gm SLOW IVP PRN PRN PRN Reason: Hypoglycemia Diphenhydramine HCl (Benadryl) 25 mg PO Q6H PRN PRN Reason: Itching & Insomnia Last Admin: 03/22/18 14:35 Dose: 25 mg Glucagon (Glucagon) 1 mg IM PRN PRN PRN Reason: Hypoglycemia Dextrose/Water (D5w) 1,000 mls @ 0 mls/hr IV .Q0M PRN PRN Reason: Hypoglycemia Insulin Glargine 25 units/ (Miscellaneous Medication) 0.25 mls @ 0 mls/hr SC QAM [facility] Last Admin: 03/22/18 10:23 Dose: 0.25 mls Insulin Human Lispro (Humalog) 0 units SC .MILD SLIDING SCALE PRN PRN Reason: Mild Correctional Scale Last Admin: 03/22/18 11:22 Dose: 3 unit Levofloxacin (Levaquin) 500 mg PO 0600 [facility] Last Admin: 03/22/18 05:50 Dose: 500 mg Sodium Chloride (Flush - Normal Saline) 10 ml IVF PRN PRN PRN Reason: Saline Flush Last Admin: 03/21/18 22:14 Dose: 10 ml Tamsulosin HCl (Flomax) 0.8 mg PO HS [facility] Last Admin: 03/21/18 22:13 Dose: 0.8 mg
[2018-03-22] MEDS ORDERED: ADENOSINE 60 MG/20 ML VIAL ONE (15:00)
[2018-03-22 15:11] VITALS: BP 180/93; TEMP 98.1
== END 2018-03-22 16:22 | DRG 65 ==
LOC: ERS 13:50 → ERHOLD 15:34 → OBSVTOIN 16:27 → 2SE 16:44 → UNDODISIN 03-22 14:22
PROVIDERS: ADMIT Internal Medicine; ATTEND Internal Medicine
DX: I63.81 Other cerebral infarction due to occlusion or stenosis of small artery (principal); G81.94 Hemiplegia, unspecified affecting left nondominant side; N13.8 Other obstructive and reflux uropathy; N10 Acute pyelonephritis; R29.702 NIHSS score 2; R07.9 Chest pain, unspecified; M25.561 Pain in right knee; B96.20 Unspecified Escherichia coli [E. coli] as the cause of diseases classified elsewhere; I49.3 Ventricular premature depolarization; N40.1 Benign prostatic hyperplasia with lower urinary tract symptoms; I10 Essential (primary) hypertension; E78.5 Hyperlipidemia, unspecified; E11.9 Type 2 diabetes mellitus without complications; Q63.1 Lobulated, fused and horseshoe kidney; R35.1 Nocturia; R33.9 Retention of urine, unspecified; Z82.3 Family history of stroke; Z79.4 Long term (current) use of insulin; Z16.23 Resistance to quinolones and fluoroquinolones; Z16.19 Resistance to other specified beta lactam antibiotics
CPT/HCPCS: 36415; 36416; 70450; 70496; 70498; 70551; 71046; 71275; 74177; 78452; 80053; 80061; 81001; 84484; 85025; 85379; 87040; 87077; 87086; 87186; 90471; 90670; 93005; 93010; 93017; 93306; A9500; G0009; J0131; J0153; J1650; J2270; J2405; J2543; J2550; J7050